=== PATIENT | female | born 1985 | race American Indian/Alaskan Native ===

== ENCOUNTER 2016-09-27 19:27 | Emergency (ER) | payer OTHER ==
[2016-09-27 19:27] VITALS: BMI 34.0
[2016-09-27 19:59] VITALS: BP 122/81; PULSE 85; RESP 20; TEMP 97.6; O2SAT 100
--- NOTE | 2016-09-27 20:52 | C.PDOC ---
History Of Present Illness 31 year old patient presents to the ED complaining of flu-like symptoms since yesterday. Patient states she has a cough, congestion, chills, and body aches. Patient has a sick contact at home with similar symptoms. Patient denies fever, nausea, vomiting, or diarrhea. Time Seen by Provider: 09/27/16 19:57 Chief Complaint (Nursing): Cough, Cold, Congestion History Per: Patient History/Exam Limitations: no limitations Onset/Duration Of Symptoms: Days (1) Current Symptoms Are (Timing): Still Present Severity: Mild Pain Scale Rating Of: 3 Recent travel outside of the [place]: No Past Medical History Reviewed: Historical Data, Nursing Documentation, Vital Signs Vital Signs: Last Vital Signs Temp 97.6 F 09/27/16 19:39 Pulse 85 09/27/16 19:39 Resp 20 09/27/16 19:39 BP 122/81 09/27/16 19:39 Pulse Ox 100 09/27/16 21:03 Family History: States: Unknown Family Hx - Social History Hx Alcohol Use: No Hx Substance Use: No - Immunization History Hx Tetanus Toxoid Vaccination: No Hx Influenza Vaccination: No Hx Pneumococcal Vaccination: No Review Of Systems Except As Marked, All Systems Reviewed And Found Negative. Constitutional: Positive for: Chills, Other (body aches) ENT: Positive for: Nose Congestion Respiratory: Positive for: Cough Gastrointestinal: Negative for: Nausea, Vomiting, Diarrhea Physical Exam - Physical Exam Appears: Non-toxic, No Acute Distress Skin: Warm, Dry Head: Atraumatic, Normacephalic Eye(s): bilateral: PERRL, EOMI Ear(s): Bilateral: Normal Nose: Normal Oral Mucosa: Moist Throat: Normal Neck: Normal ROM, Supple Chest: Symmetrical Cardiovascular: Rhythm Regular Respiratory: Normal Breath Sounds, No Rales, No Rhonchi, No Wheezing Gastrointestinal/Abdominal: Soft, No Tenderness Back: Normal Inspection Extremity: Normal ROM Neurological/Psych: Oriented x3 Gait: Steady ED Course And Treatment O2 Sat by Pulse Oximetry: 100 (RA) Pulse Ox Interpretation: Normal Progress Note: Plan: -Influenza A B ordered and negative. . On reassessment , patient is resting comfortably, and is in no acute distress. Patient is afebrile and is tolerating PO. Patient was instructed to follow up with PMD in 1 -2 days for further evaluation. Disposition - Disposition Disposition: HOME/ ROUTINE Disposition Time: 20:50 Condition: STABLE Additional Instructions: Follow up with PMD within 1-2 days. Return to ED if feel worse. Prescriptions: Brompheniramine/Pseudoephed/Dm [Bromfed Dm Cough 118 ml] 10 ml PO Q4 #300 ml Fluticasone Nasal [Flonase] 1 spr NS BID #1 spr Ibuprofen [Motrin Tab] 600 mg PO Q8 #30 tab Instructions: Upper Respiratory Infection (ED) Forms: Work Excuse - Clinical Impression Clinical Impression: Upper respiratory infection - PA / HAND THERMAL CUTTER / Resident Statement MD/DO has reviewed & agrees with the documentation as recorded. - Scribe Statement The provider has reviewed the documentation as recorded by the Scribe Katie Ritter All medical record entries made by the Scribe were at my direction and personally dictated by me. I have reviewed the chart and agree that the record accurately reflects my personal performance of the history, physical exam, medical decision making, and the department course for this patient. I have also personally directed, reviewed, and agree with the discharge instructions and disposition.
== END 2016-09-27 21:00 | disposition home or self-care (01) ==
LOC: C.ER 19:27
DX: J06.9 Acute upper respiratory infection, unspecified (principal)

== ENCOUNTER 2016-11-21 02:24 | Emergency (ER) | payer OTHER ==
[2016-11-21 02:25] VITALS: BMI 34.0
[2016-11-21 02:47] VITALS: RESP 14; TEMP 98; O2SAT 99
[2016-11-21 03:41] LABS: RBC URINE 98 /hpf (0-3); URINE BACTERIA FEW (<OCC); URINE BILIRUBIN NEGATIVE (NEGATIVE); URINE BLOOD 3+ (NEGATIVE); URINE COLOR Amber (YELLOW); URINE GLUCOSE (UA) NORMAL (Normal); URINE KETONE NEGATIVE (NEGATIVE); URINE LEUKOCYTE ESTERASE 2+ Leu/uL (Negative); URINE PROTEIN 2+ mg/dL (NEGATIVE); URINE UROBILINOGEN NORMAL mg/dL (0.2-1.0); WBC URINE 122 /hpf (0-5)
--- NOTE | 2016-11-21 03:45 | C.PDOC ---
History Of Present Illness Patient is a 31 year old female who presents to the ER with a complaint of dysuria and urinary frequency since yesterday. Patient denies vaginal discharge , hematuria, fever or vomiting. Time Seen by Provider: 11/21/16 02:29 Chief Complaint (Nursing): Female Genitourinary History Per: Patient History/Exam Limitations: no limitations Onset/Duration Of Symptoms: Days (Since yesterday) Current Symptoms Are (Timing): Still Present Quality Of Discomfort: Burning Associated Symptoms: Urinary Symptoms (Dysuria). denies: Fever, Vomiting, Other (Vaginal discharge, hematuria) Alleviating Factors: None Recent travel outside of the [place]: No Abnormal Vaginal Bleeding: No Past Medical History Reviewed: Historical Data, Nursing Documentation, Vital Signs Vital Signs: Last Vital Signs Temp 98 F 11/21/16 02:36 Pulse 70 11/21/16 03:56 Resp 14 11/21/16 03:56 BP 110/70 11/21/16 03:56 Pulse Ox 99 11/21/16 04:21 - Medical History PMH: No Chronic Diseases Surgical History: No Surg Hx Family History: States: Unknown Family Hx - Social History Hx Alcohol Use: No Hx Substance Use: No - Immunization History Hx Tetanus Toxoid Vaccination: No Hx Influenza Vaccination: No Hx Pneumococcal Vaccination: No Review Of Systems Constitutional: Negative for: Fever Gastrointestinal: Negative for: Vomiting Genitourinary: Positive for: Dysuria, Frequency. Negative for: Hematuria, Vaginal Discharge Physical Exam - Physical Exam Appears: Non-toxic, No Acute Distress Skin: Normal Color, Warm, Dry Head: Atraumatic, Normacephalic Eye(s): bilateral: Normal Inspection, EOMI Nose: Normal Oral Mucosa: Moist Neck: Normal ROM, Supple Chest: Symmetrical, No Tenderness Cardiovascular: Rhythm Regular, No Murmur Respiratory: Normal Breath Sounds, No Accessory Muscle Use, No Rales, No Rhonchi , No Wheezing, Other (Speaking in complete sentences) Gastrointestinal/Abdominal: Soft, Tenderness (Suprapubic tenderness) Back: No CVA Tenderness, No Vertebral Tenderness, Paraspinal Tenderness (Lumbar) Neurological/Psych: Oriented x3, Normal Speech, Other (No focal deficits) ED Course And Treatment O2 Sat by Pulse Oximetry: 99 (Room air) Pulse Ox Interpretation: Normal Progress Note: Urine culture ordered. Macrobid and pyridium administered. Instructed to return to ER if symptoms persist or worsen. Disposition - Disposition Referrals: Alexa Dailey MD [Staff Provider] - Disposition: HOME/ ROUTINE Disposition Time: 03:43 Condition: STABLE Additional Instructions: Follow up with your primary medical doctor or clinic in 2-5 days for further evaluation. Take medications as prescribed. Return to the emergency department at any time if symptoms persist or worsen. Prescriptions: Nitrofurantoin Macrocrystals [Macrobid] 1 cap PO BID #14 cap Phenazopyridine HCl [Pyridium] 100 mg PO TID #6 tablet Instructions: Urinary Tract Infection in Women (ED) - Clinical Impression Clinical Impression: UTI (urinary tract infection) - Scribe Statement The provider has reviewed the documentation as recorded by the Scriblul Louie All medical record entries made by the Glendaiblul were at my direction and personally dictated by me. I have reviewed the chart and agree that the record accurately reflects my personal performance of the history, physical exam, medical decision making, and the department course for this patient. I have also personally directed, reviewed, and agree with the discharge instructions and disposition.
[2016-11-21 03:57] VITALS: BP 110/70; PULSE 70
== END 2016-11-21 03:57 | disposition home or self-care (01) ==
LOC: C.ER 02:24
DX: N39.0 Urinary tract infection, site not specified (principal)

== ENCOUNTER 2017-04-07 19:56 | Emergency (ER) | payer OTHER ==
[2017-04-07 19:56] VITALS: BMI 34.0
[2017-04-07 20:05] VITALS: BP 128/88; TEMP 97.6; O2SAT 98
--- NOTE | 2017-04-07 20:23 | C.PDOC ---
History Of Present Illness 32 year old female who presents to the ER with a complaint of a tingling sensation to the right foot for the past 2 weeks, associated with intermittent numbness. Patient denies recent fall, trauma, or weakness. Time Seen by Provider: 04/07/17 20:07 Chief Complaint (Nursing): Lower Extremity Problem/Injury History Per: Patient History/Exam Limitations: no limitations Onset/Duration Of Symptoms: Days, Intermittent Episodes Current Symptoms Are (Timing): Still Present Recent travel outside of the [place]: No - Ankle/Foot Description Of Injury: denies: Fell, Struck With Object, Struck Against Object, Twisted, Laceration Past Medical History Reviewed: Historical Data, Nursing Documentation, Vital Signs Vital Signs: Last Vital Signs Temp 97.6 F 04/07/17 20:00 Pulse 69 04/07/17 20:43 Resp 18 04/07/17 20:43 BP 128/88 04/07/17 20:00 Pulse Ox 98 04/07/17 20:43 - Medical History PMH: No Chronic Diseases Surgical History: No Surg Hx Family History: States: Unknown Family Hx - Social History Hx Alcohol Use: No Hx Substance Use: No - Immunization History Hx Tetanus Toxoid Vaccination: No Hx Influenza Vaccination: No Hx Pneumococcal Vaccination: No Review Of Systems Neurological: Positive for: Numbness (Intermittent), Other (Tingling). Negative for: Weakness Physical Exam - Physical Exam Appears: Non-toxic, No Acute Distress Skin: Normal Color, Warm, Dry Head: Atraumatic, Normacephalic Eye(s): bilateral: Normal Inspection, EOMI Extremity: No Tenderness, No Calf Tenderness, Capillary Refill (<2 seconds), No Deformity, Other (Dry skin to plantar aspect of right foot) Pulses: Left Dorsalis Pedis: Normal, Right Dorsalis Pedis: Normal Neurological/Psych: Oriented x3, Normal Speech, Normal Cognition, Normal Motor, Normal Sensation Gait: Steady ED Course And Treatment O2 Sat by Pulse Oximetry: 98 (Ru Louie) Pulse Ox Interpretation: Normal Progress Note: Patient is resting comfortably, and is in no acute distress. Patient was instructed to follow up with PMD in 1-2 days for further evaluation. Disposition Counseled Patient/Family Regarding: Diagnosis, Need For Followup, Rx Given - Disposition Referrals: Sami Lizarraga MD [Staff Provider] - Disposition: HOME/ ROUTINE Disposition Time: 20:22 Condition: STABLE Additional Instructions: Please follow up with PMD Leg elevation Soak feet advil or motrin for pain Return to ER if worse Prescriptions: Ibuprofen [Motrin] 600 mg PO Q6H #20 tab Instructions: Peripheral Neuropathy (ED) Forms: [employer] (Serbian) - Clinical Impression Clinical Impression: Neuropathic pain of right foot - Scribe Statement The provider has reviewed the documentation as recorded by the Scriblul Louie All medical record entries made by the Glendaiblul were at my direction and personally dictated by me. I have reviewed the chart and agree that the record accurately reflects my personal performance of the history, physical exam, medical decision making, and the department course for this patient. I have also personally directed, reviewed, and agree with the discharge instructions and disposition.
[2017-04-07 20:43] VITALS: PULSE 69; RESP 18
== END 2017-04-07 20:44 | disposition home or self-care (01) ==
LOC: C.ER 19:56
DX: G62.9 Polyneuropathy, unspecified (principal)

== ENCOUNTER 2017-12-03 20:36 | Emergency (ER) | payer OTHER ==
[2017-12-03 20:36] VITALS: BMI 34.0
[2017-12-03] MEDS ORDERED: Sodium Chloride 0.9% 1,000 ML IV ONE (21:19)
--- NOTE | 2017-12-03 21:19 | C.PDOC ---
History Of Present Illness Patient who is 4 weeks , P:4, presents to the ER with a complaint of vaginal bleeding. Denies fever, chills, nausea, or vomiting. Time Seen by Provider: 12/03/17 21:18 Chief Complaint (Nursing): Female Genitourinary History Per: Patient History/Exam Limitations: no limitations Onset/Duration Of Symptoms: Hrs Current Symptoms Are (Timing): Still Present Severity: Moderate Pain Scale Rating Of: 4 Quality Of Discomfort: Unable To Describe Associated Symptoms: denies: Fever, Chills, Nausea, Vomiting Alleviating Factors: None Recent travel outside of the [place]: No Abnormal Vaginal Bleeding: Yes Past Medical History Reviewed: Historical Data, Nursing Documentation, Vital Signs Vital Signs: Last Vital Signs Temp 98.3 F 12/03/17 21:02 Pulse 93 H 12/03/17 21:02 Resp 18 12/03/17 21:02 BP 110/77 12/03/17 21:02 Pulse Ox 100 12/03/17 22:02 Family History: States: No Known Family Hx - Social History Hx Alcohol Use: No Hx Substance Use: No - Immunization History Hx Tetanus Toxoid Vaccination: No Hx Influenza Vaccination: No Hx Pneumococcal Vaccination: No Review Of Systems Constitutional: Negative for: Fever, Chills Cardiovascular: Negative for: Chest Pain, Palpitations Respiratory: Negative for: Cough, Shortness of Breath Gastrointestinal: Negative for: Nausea, Vomiting Genitourinary: Positive for: Vaginal Bleeding Physical Exam - Physical Exam Appears: Non-toxic Skin: Warm, Dry Head: Normacephalic Oral Mucosa: Moist Chest: Symmetrical, No Tenderness Cardiovascular: Rhythm Regular Respiratory: No Rales, No Rhonchi, No Wheezing Gastrointestinal/Abdominal: Soft, No Tenderness Neurological/Psych: Oriented x3 ED Course And Treatment - Laboratory Results Result Diagrams: 12/03/17 21:43 12/03/17 21:43 O2 Sat by Pulse Oximetry: 100 (Room air) Pulse Ox Interpretation: Normal Progress Note: Blood work and urinalysis ordered. IV fluids administered. Disposition Counseled Patient/Family Regarding: Studies Performed, Diagnosis, Need For Followup - Disposition Referrals: [facility] [Outside] [facility] [Outside] Disposition: HOME/ ROUTINE Disposition Time: 21:19 Condition: FAIR Additional Instructions: Please return in 7-10 days for repeat BHCG level Instructions: Threatened Miscarriage (DC) Forms: [employer] (Bulgarian) - Clinical Impression Clinical Impression: Threatened - Scribe Statement The provider has reviewed the documentation as recorded by the Scribe Ru Louie All medical record entries made by the Scribe were at my direction and personally dictated by me. I have reviewed the chart and agree that the record accurately reflects my personal performance of the history, physical exam, medical decision making, and the department course for this patient. I have also personally directed, reviewed, and agree with the discharge instructions and disposition.
[2017-12-03 21:50] LABS: BASO # 0.1 K/uL (0.0-0.2); BASO % 1.1 % (0.0-2.0); EOS # 0.1 K/uL (0.0-0.7); EOS % 0.7 % (0.0-4.0); HEMOGLOBIN 11.6 g/dL (11.0-16.0); LYMPH # 2.5 K/uL (1.0-4.3); LYMPH % 30.8 % (20.0-40.0); MEAN CELL VOLUME 80.8 fL (81.0-99.0); MEAN CORPUSCULAR HEMOGLOBIN 26.8 pg (27.0-31.0); MEAN CORPUSCULAR HGB CONC 33.2 g/dL (33.0-37.0); MEAN PLATELET VOLUME 8.7 fL (7.2-11.7); MONO # 0.7 K/uL (0.0-0.8); MONO % 8.2 % (0.0-10.0); NEUT # 4.7 K/uL (1.8-7.0); NEUT % 59.2 % (50.0-75.0); RBC 4.33 Mil/uL (3.80-5.20); RED CELL DISTRIBUTION WIDTH 16.3 % (11.5-14.5)
[2017-12-03 21:59] LABS: SQUAMOUS EPITHIAL 30 /hpf (0-5); URINE BACTERIA FEW (<OCC); URINE BILIRUBIN NEGATIVE (NEGATIVE); URINE BLOOD 3+ (NEGATIVE); URINE CLARITY Hazy (Clear); URINE COLOR Red (YELLOW); URINE GLUCOSE (UA) NORMAL (Normal); URINE LEUKOCYTE ESTERASE NEG Leu/uL (Negative); URINE PROTEIN 2+ mg/dL (NEGATIVE)
[2017-12-03 22:02] LABS: ALB/GLOB RATIO 1.1 (1.0-2.1); ALBUMIN 3.8 g/dL (3.5-5.0); ALT/SGPT 17 U/L (9-52); AST/SGOT 21 U/L (14-36); BLOOD UREA NITROGEN 12 mg/dL (7-17); GFR AFRICAN-AMERICAN > 60; GFR NON-AFRICAN AMERICAN > 60
[2017-12-03 22:06] LABS: INR 1.1; PROTHROMBIN TIME 11.7 SECONDS (9.7-12.2)
[2017-12-03 23:07] VITALS: BP 118/81; PULSE 64; RESP 20; TEMP 98; O2SAT 99
== END 2017-12-03 23:05 | disposition home or self-care (01) ==
LOC: C.ER 20:36
DX: O20.0 Threatened abortion (principal); Z3A.01 Less than 8 weeks gestation of pregnancy
CPT/HCPCS: 80053; 81001; 84702; 85025; 85610; 85730; 86850; 86900; 96360; 99283; J7030

== ENCOUNTER 2018-03-31 20:04 | Emergency (ER) | payer OTHER ==
[2018-03-31 20:04] VITALS: BMI 34.0
[2018-03-31 20:24] VITALS: BP 131/85; PULSE 84; TEMP 98.2; O2SAT 98
--- NOTE | 2018-03-31 21:08 | C.PDOC ---
History Of Present Illness 33 y/o female presents to ED with c/o cough and congestion since yesterday associated with body aches. Patient states she had a sore throat yesterday which improved but the cough and congestion persisted. Patient denies fever, chills, chest pain, sob, leg swelling, headache, muscle cramps, nausea, vomiting, abdominal pain or any other complaints at this time. Time Seen by Provider: 03/31/18 20:44 Chief Complaint (Nursing): Flu-like Symptoms History Per: Patient History/Exam Limitations: no limitations Onset/Duration Of Symptoms: Days Current Symptoms Are (Timing): Still Present Past Medical History Reviewed: Historical Data, Nursing Documentation, Vital Signs Vital Signs: Last Vital Signs Temp 98.2 F 03/31/18 20:20 Pulse 84 03/31/18 20:20 Resp 14 03/31/18 20:20 BP 131/85 03/31/18 20:20 Pulse Ox 98 03/31/18 20:20 - Medical History PMH: No Chronic Diseases Surgical History: No Surg Hx Family History: States: No Known Family Hx - Social History Hx Alcohol Use: No Hx Substance Use: No - Immunization History Hx Tetanus Toxoid Vaccination: No Hx Influenza Vaccination: No Hx Pneumococcal Vaccination: No Review Of Systems Except As Marked, All Systems Reviewed And Found Negative. Constitutional: Negative for: Fever, Chills ENT: Positive for: Nose Congestion Respiratory: Positive for: Cough Gastrointestinal: Negative for: Nausea, Vomiting, Abdominal Pain Skin: Negative for: Rash Physical Exam - Physical Exam Appears: Non-toxic, No Acute Distress Skin: Warm, Dry, No Rash Head: Atraumatic, Normacephalic Eye(s): bilateral: Normal Inspection, EOMI Ear(s): Bilateral: Normal Nose: Other (nasal congestion) Oral Mucosa: Moist Throat: Normal, No Erythema, No Exudate Neck: Normal ROM, Supple Lymphatic: Normal Exam Chest: Symmetrical Cardiovascular: Rhythm Regular Respiratory: Normal Breath Sounds, No Rales, No Rhonchi, No Wheezing Gastrointestinal/Abdominal: Soft, No Tenderness, No Guarding, No Rebound Extremity: Normal ROM Neurological/Psych: Oriented x3, Normal Speech, Normal Cognition ED Course And Treatment O2 Sat by Pulse Oximetry: 98 (RA) Pulse Ox Interpretation: Normal Progress Note: Discussed with pt symptoms appear viral and instructed symptomatic treatment. Discussed return precautions and to follow up with PMD in 1-2 days. Disposition - Disposition Disposition: HOME/ ROUTINE Disposition Time: 21:07 Condition: STABLE Additional Instructions: Drink plenty of fluids. Follow up with your primary medical doctor or clinic in 2-5 days for further evaluation. Take medications as prescribed. Return to the emergency department at any time if symptoms persist or worsen. Prescriptions: Guaifen/Dextromethorphan/PE [Mucinex Fast-Max Congest-Cough] 1 each PO Q6 #20 tablet Naproxen [Naprosyn] 1 tab PO BID PRN #20 tab PRN Reason: Pain Instructions: Viral Syndrome (DC) Forms: [employer] (Dutch) - Clinical Impression Clinical Impression: Upper respiratory infection, Viral illness - PA / LIP CUTTER / Resident Statement MD/DO has reviewed & agrees with the documentation as recorded. - Scribe Statement The provider has reviewed the documentation as recorded by the Scriblul Ventura All medical record entries made by the Glendaiblul were at my direction and personally dictated by me. I have reviewed the chart and agree that the record accurately reflects my personal performance of the history, physical exam, medical decision making, and the department course for this patient. I have also personally directed, reviewed, and agree with the discharge instructions and disposition.
[2018-03-31 21:12] VITALS: RESP 20
== END 2018-03-31 21:11 | disposition home or self-care (01) ==
LOC: C.ER 20:04
DX: J06.9 Acute upper respiratory infection, unspecified (principal); B34.9 Viral infection, unspecified

== ENCOUNTER 2018-09-20 14:06 | Emergency (ER) | payer OTHER ==
[2018-09-20 14:06] VITALS: BMI 34.0
[2018-09-20 17:14] LABS: BASO % 0.5 % (0.0-2.0); EOS % 0.5 % (0.0-4.0); HEMOGLOBIN 11.5 g/dL (11.0-16.0); LYMPH # 3.2 K/uL (1.0-4.3); LYMPH % 30.5 % (20.0-40.0); MEAN CELL VOLUME 82.7 fL (81.0-99.0); MEAN CORPUSCULAR HEMOGLOBIN 27.4 pg (27.0-31.0); MEAN CORPUSCULAR HGB CONC 33.2 g/dL (33.0-37.0); MEAN PLATELET VOLUME 8.9 fL (7.2-11.7); MONO # 0.8 K/uL (0.0-0.8); MONO % 7.3 % (0.0-10.0); NEUT # 6.4 K/uL (1.8-7.0); NEUT % 61.2 % (50.0-75.0); RBC 4.19 Mil/uL (3.80-5.20); RED CELL DISTRIBUTION WIDTH 16.4 % (11.5-14.5); WHITE BLOOD COUNT 10.5 K/uL (4.8-10.8)
[2018-09-20 17:18] LABS: ALB/GLOB RATIO 1.1 (1.0-2.1); ALBUMIN 3.9 g/dL (3.5-5.0); AST/SGOT 21 U/L (14-36); BLOOD UREA NITROGEN 9 mg/dL (7-17); CALCIUM 9.3 mg/dl (8.6-10.4); GFR NON-AFRICAN AMERICAN > 60
[2018-09-20 17:23] LABS: ALT/SGPT < 6 U/L (9-52)
[2018-09-20 17:40] LABS: SQUAMOUS EPITHIAL 4 /hpf (0-5); URINE BACTERIA RARE (<OCC); URINE BILIRUBIN NEGATIVE (NEGATIVE); URINE BLOOD 3+ (NEGATIVE); URINE CLARITY Hazy (Clear); URINE COLOR Yellow (YELLOW); URINE GLUCOSE (UA) NORMAL (Normal); URINE LEUKOCYTE ESTERASE NEG Leu/uL (Negative); URINE PROTEIN NEGATIVE (NEGATIVE); URINE UROBILINOGEN NORMAL mg/dL (0.2-1.0)
--- NOTE | 2018-09-20 18:14 | C.PDOC ---
History Of Present Illness Patient is a 33 year old female who presents to the ED c/o intermittent spotting with lower abdominal cramping worse than menses that began today. Patient also reports that she had some clots yesterday. LMP 07/12/18 She denies any nausea, vomiting, fever, chills, CP, SOB. <Selam Levine - Last Filed: 09/20/18 18:57> History Per: Patient History/Exam Limitations: no limitations Onset/Duration Of Symptoms: Hrs Current Symptoms Are (Timing): Still Present Recent travel outside of the [place]: No Additional History Per: Patient Abnormal Vaginal Bleeding: Yes <Selam Levine - Last Filed: 09/20/18 18:57> <Nicki Patrick - Last Filed: 09/20/18 20:26> Time Seen by Provider: 09/20/18 15:52 Chief Complaint (Nursing): Abdominal Pain Past Medical History Reviewed: Historical Data, Nursing Documentation, Vital Signs Vital Signs: Last Vital Signs Temp 98.3 F 09/20/18 14:33 Pulse 49 L 09/20/18 14:33 Resp 18 09/20/18 14:33 BP 145/80 09/20/18 14:33 Pulse Ox 100 09/20/18 14:33 - Medical History PMH: No Chronic Diseases Surgical History: No Surg Hx Family History: States: No Known Family Hx - Social History Hx Alcohol Use: Yes Hx Substance Use: No - Immunization History Hx Tetanus Toxoid Vaccination: No Hx Influenza Vaccination: No Hx Pneumococcal Vaccination: No <Selam Levine - Last Filed: 09/20/18 18:57> Vital Signs: Last Vital Signs Temp 98.3 F 09/20/18 19:19 Pulse 66 09/20/18 19:19 Resp 16 09/20/18 19:19 BP 108/70 09/20/18 19:19 Pulse Ox 99 09/20/18 19:19 <Nicki Patrick - Last Filed: 09/20/18 20:26> Review Of Systems Constitutional: Negative for: Fever, Chills Cardiovascular: Negative for: Chest Pain Respiratory: Negative for: Shortness of Breath Gastrointestinal: Positive for: Abdominal Pain (lower abdominal cramping). Negative for: Nausea, Vomiting, Diarrhea, Constipation, Hematochezia Genitourinary: Positive for: Vaginal Bleeding (intermittent spotting) <Selam Levine - Last Filed: 09/20/18 18:57> Physical Exam - Physical Exam Appears: Non-toxic, No Acute Distress Skin: No Rash Head: Atraumatic, Normacephalic Eye(s): bilateral: PERRL, EOMI Neck: Supple Chest: No Tenderness Cardiovascular: Rhythm Regular, No Murmur Respiratory: No Decreased Breath Sounds, No Rales, No Rhonchi, No Wheezing Gastrointestinal/Abdominal: Bowel Sounds, Soft, Tenderness (no epigastric tenderness. +suprapubic tenderness ), No Distention, No Guarding, No Rebound Back: No CVA Tenderness Extremity: No Calf Tenderness, No Swelling Neurological/Psych: Oriented x3, Normal Speech, Normal Cognition <Selam Levine - Last Filed: 09/20/18 18:57> ED Course And Treatment - Laboratory Results Result Diagrams: 09/20/18 16:59 09/20/18 16:59 Lab Results: Total Bilirubin 0.3 mg/dL (0.2-1.3) 09/20/18 16:59 AST 21 U/L (14-36) 09/20/18 16:59 ALT < 6 U/L (9-52) L D 09/20/18 16:59 Alkaline Phosphatase 71 U/L (38-126) 09/20/18 16:59 Total Protein 7.3 g/dL (6.3-8.3) 09/20/18 16:59 Albumin 3.9 g/dL (3.5-5.0) 09/20/18 16:59 Globulin 3.4 gm/dL (2.2-3.9) 09/20/18 16:59 Albumin/Globulin Ratio 1.1 (1.0-2.1) 09/20/18 16:59 Urine Color Yellow (YELLOW) 09/20/18 17:18 Urine Clarity Hazy (Clear) 09/20/18 17:18 Urine pH 6.0 (5.0-8.0) 09/20/18 17:18 Ur Specific [place] 1.020 (1.003-1.030) 09/20/18 17:18 Urine Protein Negative mg/dL (NEGATIVE) 09/20/18 17:18 Urine Glucose (UA) Normal mg/dL (Normal) 09/20/18 17:18 Urine Ketones Negative mg/dL (NEGATIVE) 09/20/18 17:18 Urine Blood 3+ (NEGATIVE) H 09/20/18 17:18 Urine Nitrate Negative (NEGATIVE) 09/20/18 17:18 Urine Bilirubin Negative (NEGATIVE) 09/20/18 17:18 Urine Urobilinogen Normal mg/dL (0.2-1.0) 09/20/18 17:18 Ur Leukocyte Esterase Neg [place]/uL (Negative) 09/20/18 17:18 Urine WBC (Auto) 4 /hpf (0-5) 09/20/18 17:18 Urine RBC (Auto) 109 /hpf (0-3) H 09/20/18 17:18 Ur Squamous Epith Cells 4 /hpf (0-5) 09/20/18 17:18 Urine Bacteria Rare (<OCC) 09/20/18 17:18 O2 Sat by Pulse Oximetry: 100 (on RA) Pulse Ox Interpretation: Normal <Selam Levine - Last Filed: 09/20/18 18:57> - Laboratory Results Result Diagrams: 09/20/18 16:59 09/20/18 16:59 Lab Results: Total Bilirubin 0.3 mg/dL (0.2-1.3) 09/20/18 16:59 AST 21 U/L (14-36) 09/20/18 16:59 ALT < 6 U/L (9-52) L D 09/20/18 16:59 Alkaline Phosphatase 71 U/L (38-126) 09/20/18 16:59 Total Protein 7.3 g/dL (6.3-8.3) 09/20/18 16:59 Albumin 3.9 g/dL (3.5-5.0) 09/20/18 16:59 Globulin 3.4 gm/dL (2.2-3.9) 09/20/18 16:59 Albumin/Globulin Ratio 1.1 (1.0-2.1) 09/20/18 16:59 Urine Color Yellow (YELLOW) 09/20/18 17:18 Urine Clarity Hazy (Clear) 09/20/18 17:18 Urine pH 6.0 (5.0-8.0) 09/20/18 17:18 Ur Specific [place] 1.020 (1.003-1.030) 09/20/18 17:18 Urine Protein Negative mg/dL (NEGATIVE) 09/20/18 17:18 Urine Glucose (UA) Normal mg/dL (Normal) 09/20/18 17:18 Urine Ketones Negative mg/dL (NEGATIVE) 09/20/18 17:18 Urine Blood 3+ (NEGATIVE) H 09/20/18 17:18 Urine Nitrate Negative (NEGATIVE) 09/20/18 17:18 Urine Bilirubin Negative (NEGATIVE) 09/20/18 17:18 Urine Urobilinogen Normal mg/dL (0.2-1.0) 09/20/18 17:18 Ur Leukocyte Esterase Neg [place]/uL (Negative) 09/20/18 17:18 Urine WBC (Auto) 4 /hpf (0-5) 09/20/18 17:18 Urine RBC (Auto) 109 /hpf (0-3) H 09/20/18 17:18 Ur Squamous Epith Cells 4 /hpf (0-5) 09/20/18 17:18 Urine Bacteria Rare (<OCC) 09/20/18 17:18 Beta HCG, Quant 40234.00 mIU/ML 09/20/18 16:59 Pulse Ox Interpretation: Normal <Nicki Patrick - Last Filed: 09/20/18 20:26> Medical Decision Making Medical Decision Making: Plan: Labs Tylenol 650mg PO POC Urine US Transvaginal Patient is . <Selam Levine - Last Filed: 09/20/18 18:57> Disposition - Disposition Disposition Time: 18:59 <Selam Levine - Last Filed: 09/20/18 18:57> Counseled Patient/Family Regarding: Studies Performed, Diagnosis, Need For Followup <Nicki Patrick - Last Filed: 09/20/18 20:26> - Disposition Disposition: HOME/ ROUTINE Condition: FAIR Additional Instructions: Please follow up with your commercial pest control technician Instructions: Bleeding With (DC), Threatened Miscarriage (DC) Forms: [employer] (Arabic) - Clinical Impression Clinical Impression: Vaginal bleeding during , Threatened - PA / FLATWORK FEEDER / Resident Statement MD/DO has examined the patient and agrees with the treatment plan. - Scribe Statement The provider has reviewed the documentation as recorded by the Scribe Megha Pych All medical record entries made by the Scribe were at my direction and personally dictated by me. I have reviewed the chart and agree that the record accurately reflects my personal performance of the history, physical exam, medical decision making, and the department course for this patient. I have also personally directed, reviewed, and agree with the discharge instructions and disposition. <Selam Levine - Last Filed: 09/20/18 18:57> Physician Patient Turnover Patient Signed Over To: Nicki Patrick Handoff Comments: f/u transvaginal songram, and dispo appropriately <Selam Levine - Last Filed: 09/20/18 18:57>
[2018-09-20 19:20] VITALS: RESP 16
[2018-09-20 20:39] VITALS: BP 134/76; PULSE 60; TEMP 98.7; O2SAT 100
--- NOTE | 2018-09-21 13:47 | US ---
Date of service: 09/20/2018 Indication: low ab pain lmp 07/12 Comparison: None available Technique: Real-time transabdominal pelvic ultrasound was performed. In addition a transvaginal pelvic ultrasound was necessary to better depict pelvic anatomy. Findings: Uterus measures approximately 16.8 x 7.2 x 7.0 cm. Anteverted. Cervix length measures approximately 2 cm. There is a single intrauterine fetus present. Yolk sac is not identified. The gestational sac measures 4.5 cm and is compatible with a gestational age of 10 weeks 0 days. The gestational sac is noted at the lower uterine segment. The crown-rump length measures 2.8 cm and is compatible with a gestational age of 9 weeks 4 days. heart motion is not detected. The right ovary measures 3.4 x 2.2 x 2.9 cm. The left ovary measures 2.5 x 1.8 x 2.3 cm. Flow was demonstrated to both ovaries. Impression: Gestational sac identified within the lower uterine segment. Estimated gestational age 9 weeks 4 days by crown-rump length calculation and 10 weeks 0 days by gestational sac calculation. heart motion is not detected. Correlate clinically. Trace fluid noted within a thickened endometrial complex (approximately 1.9 cm). Cervix length measures approximately 2 cm. Preliminary impression was provided by [facility].
== END 2018-09-20 20:39 | disposition home or self-care (01) ==
LOC: C.ER 14:06
DX: O20.0 Threatened abortion (principal); Z3A.10 10 weeks gestation of pregnancy